=== PATIENT | female | born 1960 | race Hispanic/Latino ===

== ENCOUNTER 2017-08-22 16:20 | Emergency (ER) | payer MEDICAID ==
[2017-08-22 16:20] VITALS: BMI 50.7
[2017-08-22 16:38] VITALS: TEMP 97.9
[2017-08-22] MEDS ORDERED: Sodium Chloride 0.9% 500 ML IV STA (17:08)
--- NOTE | 2017-08-22 17:13 | ED PDOC ---
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 and noted over 1-2 weeks ago with this light-induced dizziness; pt states today, while going home, the bright lights of [employer] caused her another episode of the dizziness and patient decided to come to ED for further eval/exam; pt states she saw her PCP 4days ago and changed patient BP med from losartan to Diovan and it cleared her vision changes ; pt states she noticed blurry eye vision over the last 1-2 weeks; pt is due to see Dr Mcguire over the next few days; pt states no fever/chills/sweats, no cp/ sob/palpitations, no abd pain, no n/v, no numbness/tingling, no urinary/bowel changes, no focal weakness, no slurr speech/facial changes/numbness/tingling, no other complaints; pt is here for further eval. pt is left hand dominate Time/Duration: Other (1month) Symptom Onset: Gradual Symptom Course: Intermittent Context: Walking, Home, Work Past Medical History - Provider Review Nursing Documentation Reviewed: Yes - Travel History Have you recently traveled outside [place] w/in the past 3 mons?: No - Past History Past History: No Previous - Infectious Disease Hx of Infectious Diseases: None - Tetanus Immunization Tetanus Immunization: Unknown - Cardiac Hx Hypertension: Yes - Pulmonary Hx Asthma: Yes - Endocrine/Metabolic Hx Diabetes Mellitus Type 2: Yes Hx Hypothyroidism: Yes - Psychiatric Hx Depression: No Hx Emotional Abuse: No Hx Physical Abuse: No Hx Substance Use: No - Surgical History Hx Hysterectomy: Yes - Anesthesia Hx Anesthesia: Yes Hx Anesthesia Reactions: No Hx Malignant Hyperthermia: No - Suicidal Assessment Feels Threatened In Home Enviroment: No Family/Social History - Physician Review Nursing Documentation Reviewed: Yes Family/Social History: No Known Family HX Smoking Status: Never Smoked Hx Alcohol Use: No Hx Substance Use: No Hx Substance Use Treatment: No Allergies/Home Meds Allergies/Adverse Reactions: Allergies No Known Allergies Allergy (Verified 08/22/17 16:37) Home Medications: Home Meds Medication Instructions Recorded Confirmed Albuterol HFA [Ventolin HFA 90 2 puff IH [id number] PRN 08/22/17 08/22/17 mcg/actuation (8 g)] Ergocalciferol (Vitamin D2) 1.25 mg PO DAILY 08/22/17 08/22/17 [Vitamin D2] Ferrous Sulfate [Feosol] 325 mg PO DAILY 08/22/17 08/22/17 Fluticasone Propionate [Flovent 50 mcg IH PRN PRN 08/22/17 08/22/17 Diskus] Furosemide [Lasix] 40 mg PO DAILY 08/22/17 08/22/17 Glimepiride [amaRYL] 2 mg PO DAILY 08/22/17 08/22/17 Montelukast [Singulair] 10 mg PO DAILY 08/22/17 08/22/17 Potassium Chloride [Klor-Con] 20 meq PO DAILY 08/22/17 08/22/17 SITagliptin [Januvia] 100 mg PO DAILY 08/22/17 08/22/17 Simvastatin [Zocor] 20 mg PO DAILY 08/22/17 08/22/17 Valsartan/Hydrochlorothiazide 1 each PO DAILY 08/22/17 08/22/17 [Diovan Hct 160-25 mg Tablet] metFORMIN [glucOPHAGE] 500 mg PO BID 08/22/17 08/22/17 Review of Systems - Review of Systems Constitutional: Normal Eyes: Vision Changes, Eye Pain, Other (blurry vision) ENT: Normal Respiratory: Normal Cardiovascular: Normal Gastrointestinal: Normal Genitourinary Female: Normal Musculoskeletal: Normal Skin: Normal Neurological: Dizziness. absent: Headache, Focal Weakness, Gait Changes, Speech Changes, Facial Droop, Disequilibrium, Seizure Endocrine: Normal Hemo/Lymphatic: Normal Psychiatric: Normal Physical Exam Vital Signs Reviewed: Yes Vital Signs Temp Pulse Resp BP Pulse Ox 08/22/17 16:38 97.9 F 88 19 150/97 H 97 Temperature: Afebrile Blood Pressure: Hypertensive Pulse: Regular Respiratory Rate: Normal Appearance: Positive for: Well-Appearing, Non-Toxic, Other (mildly uncomfortable , alert/awake, GCS = 15, oriented x 3, cooperative, follows command with ease) Pain Distress: None Mental Status: Positive for: Alert and Oriented X 3 - Systems Exam Head: Present: Atraumatic, Normocephalic Pupils: Present: PERRL, Other (visual field intact b/l, no nystagmus, no photophobia, sclera anicteric) Extroacular Muscles: Present: EOMI Conjunctiva: Present: Normal Ears: Present: Normal Mouth: Present: Moist Mucous Membranes, Normal Teeth, Other (no drooling/stridor , no exudate/lesions, intact dentitions, no dysphonia) Pharnyx: Present: Normal Nose (External): Present: Atraumatic Nose (Internal): Present: Normal Inspection Neck: Present: Normal Range of Motion, Trachea Midline, Other (no meningeal signs, no midline tenderness). No: Meningeal Signs, MIDLINE TENDERNESS Respiratory/Chest: Present: Clear to Auscultation, Good Air Exchange, Other ( CTA b/l; no w/r/r, no accessory muscle use noted, no tachypenia) Cardiovascular: Present: Regular Rate and Rhythm, Normal S1, S2. No: Murmurs Abdomen: Present: Normal Bowel Sounds, Other (well nourished/obese female, no focal tenderness, no masses/rebound/guarding/rigidity; no de la fuente's sign, no mcburney's point tenderness) Back: Present: Normal Inspection. No: CVA Tenderness, Midline Tenderness Upper Extremity: Present: Normal Inspection, Normal ROM, NORMAL PULSES, Neurovascularly Intact Lower Extremity: Present: Normal Inspection, NORMAL PULSES, Normal ROM, Neurovascularly Intact, Capillary Refill < 2 s Neurological: Present: GCS=15, CN II-XII Intact, Speech Normal, Other (CNII-XII WNL, no facial asymmetries, no slurr speech, NIH stroke scale ~ 0) Skin: Present: Warm, Normal Color, Other (cap refill < 1sec, no ulcerations, no petechiae) Psychiatric: Present: Alert, Oriented x 3 Medical Decision Making ED Course and Treatment: 08/22/17 17:17 Impression: dizziness, light induced; unlikely infection, unlikely hypovolm i have consider all the differential diagnosis regarding pt's chief medical complaints/clinical findings, including but are not limited to: dizziness A/P: dizziness - labs - iv - ct - observe - supportive care 08/22/17 20:50 pt is feeling much improved pt is ambulatory without any difficulties pt is currently awaiting CT head 08/22/17 22:17 pt remains comfortable pt is not in any distress NIH stroke scale remains 0 pt is made aware of her medical results pt is encouraged fluid hydration pt is encouraged avoiding constant straining, viewing computer monitor pt will continue with her appointment with eye doctor pt will f/u as directed pt will be discharged home 08/22/17 22:22 Re-evaluation Time: 20:50 Reassessment Condition: Improved - Lab Interpretations Lab Results: 08/22/17 17:58 08/22/17 17:58 Lab Results 08/22/17 17:58: Sodium 138, Potassium 3.7, Chloride 97 L, Carbon Dioxide 28, Anion Gap 17, BUN 28 H, Creatinine 0.9, Est GFR ( Amer) > 60, Est GFR ( Non-Af Amer) > 60, Random Glucose 121 H, Calcium 10.1, Magnesium 2.1, Total Bilirubin 0.4, AST 20, ALT 34, Alkaline Phosphatase 72, Lactate Dehydrogenase 433, Total Creatine Kinase 46, Troponin I < 0.01, Total Protein 7.4, Albumin 4.2 , Globulin 3.2, Albumin/Globulin Ratio 1.3 08/22/17 17:58: Urine Color Yellow, Urine Appearance Clear, Urine pH 6.0, Ur Specific [place] 1.020, Urine Protein Negative, Urine Glucose (UA) Negative, Urine Ketones Negative, Urine Blood Negative, Urine Nitrate Negative, Urine Bilirubin Negative, Urine Urobilinogen 0.2, Ur Leukocyte Esterase Negative 08/22/17 17:58: WBC 9.0, RBC 4.96, Hgb 13.2, Hct 39.8, MCV 80.2, MCH 26.6, MCHC 33.2, RDW 14.8 H, Plt Count 276, MPV 9.9, Gran % 72.6 H, Lymph % (Auto) 19.8 L, [place] % (Auto) 7.1 H, Eos % (Auto) 0.4 L, Baso % (Auto) 0.1, Gran # 6.51 H, Lymph # (Auto) 1.8, [place] # (Auto) 0.6, Eos # (Auto) 0.0, Baso # (Auto) 0.01 08/22/17 17:11: POC Glucose (mg/dL) 131 H I have reviewed the lab results: Yes Interpretation: All labs normal - RAD Interpretation Narrative RAD Interpretations (Text): 08/22/17 23:13 PRELIM reading IMPRESSION: 1. No acute intracranial hemorrhage or acute territorial type infarct. 2. There is minimal periventricular hypodensity, likely representing small vessel ischemic disease in a patient this age. 3. Mild atrophy. Radiology Orders: 08/22/17 17:07 Brain [HEAD W/O CONTRAST] [CT] Stat Patient Registrar: Radiologist - EKG Interpretation EKG Interpretation (Text): 08/22/17 20:54 Sinus tach at 105 bpm, normal axis, + ectopy, non-specific st-t changes, Borderline EKG; unchanged compare with old ekg 07/2015 Interpreted by ED Physician: Yes Type: 12 lead EKG Comparison: Similar to previous EKG - Medication Orders Current Medication Orders: Discontinued Medications Sodium Chloride (Sodium Chloride 0.9%) 500 mls @ 999 mls/hr IV .Q31M STA Stop: 08/22/17 17:38 Last Admin: 08/22/17 17:42 Dose: 999 mls/hr eMAR Start Stop Document 08/22/17 17:42 SF (Rec: 08/22/17 17:42 SF [id number]) Intravenous Solution Start Date 08/22/17 Start Time 17:42 End Date 08/22/17 End time 18:15 Total Infusion Time 33 Disposition/Present on Arrival - Present on Arrival Any Indicators Present on Arrival: No History of DVT/PE: No History of Uncontrolled Diabetes: Yes Urinary Catheter: No History of Decub. Ulcer: No History Surgical Site Infection Following: None - Disposition Have Diagnosis and Disposition been Completed?: Yes Diagnosis: Dizziness, Bilateral eye strain Disposition: HOME/ ROUTINE Disposition Time: 22:19 Patient Plan: Discharge Condition: STABLE Discharge Instructions (ExitCare): Dizziness, Nonvertigo, (DC), Eyestrain Print Language: CITIZEN OF [place] Additional Instructions: Make sure to see your doctor in 1-2 days DRINK PLENTY OF FLUIDS AVOID constant eye straining, take breaks during work is encouraged take your medications as prescribed weight loss is encouraged RETURN TO ED IF worse pain, cant breath, slurr speech, facial numbness/tingling , persistent vomiting, high fever >101-102 for hours, altered behavior, unable to urinate, heavy/persistent bleeding, passing out, chest pain, or other medical emergencies Referrals: Silviano Chan MD [Primary Care Provider] - Follow up with primary Forms: [facility] (Macedonian), WORK NOTE
[2017-08-22 18:16] LABS: BASO # 0.01 K/mm3 (0.0-2.0); BASO % 0.1 % (0.0-3.0); EOS % 0.4 % (1.5-5.0); GRAN # 6.51 (1.4-6.5); GRAN % 72.6 % (50.0-68.0); HEMOGLOBIN 13.2 g/dL (12.0-16.0); LYMPH # 1.8 (1.2-3.4); LYMPH % 19.8 % (22.0-35.0); MEAN CELL VOLUME 80.2 fl (80.0-105.0); MEAN CORPUSCULAR HEMOGLOBIN 26.6 pg (25.0-35.0); MEAN CORPUSCULAR HGB CONC 33.2 g/dl (31.0-37.0); MEAN PLATELET VOLUME 9.9 fl (7.0-11.0); MONO # 0.6 (0.1-0.6); MONO % 7.1 % (1.0-6.0); RBC 4.96 10^6/uL (3.5-6.1); RED CELL DISTRIBUTION WIDTH 14.8 % (11.5-14.5); URINE BILIRUBIN NEGATIVE (NEGATIVE); URINE BLOOD NEGATIVE (NEGATIVE); URINE GLUCOSE (UA) NEGATIVE (NEGATIVE); URINE LEUKOCYTE ESTERASE NEGATIVE Leu/uL (NEGATIVE); URINE NITRATE NEGATIVE (NEGATIVE); URINE PROTEIN NEGATIVE mg/dL (<30 mg/dL); URINE UROBILINOGEN 0.2 E.U./dL (<1 E.U./dL)
[2017-08-22 18:17] LABS: URINE APPEARANCE CLEAR (CLEAR); URINE COLOR YELLOW (YELLOW)
[2017-08-22 18:22] LABS: ALB/GLOB RATIO 1.3 (1.1-1.8); ALBUMIN 4.2 g/dL (3.0-4.8); ALT/SGPT 34 U/L (7-56); AST/SGOT 20 U/L (14-36); BLOOD UREA NITROGEN 28 mg/dL (7-21); CALCIUM 10.1 mg/dL (8.4-10.5); GFR AFRICAN-AMERICAN > 60; GFR NON-AFRICAN AMERICAN > 60; MAGNESIUM 2.1 mg/dL (1.7-2.2)
[2017-08-22 18:34] LABS: TROPONIN I < 0.01 ng/mL
--- NOTE | 2017-08-22 23:08 | CT ---
EXAM: CT Head Without Intravenous Contrast EXAM DATE/TIME: 08/22/2017 5:07 PM CLINICAL HISTORY: The patient age is 56 years old and is female; Signs and symptoms; Dizziness Facility exam id and description: Ct heads head w/o contrast TECHNIQUE: Axial computed tomography images of the head/brain without intravenous contrast. All CT scans at this facility use one or more dose reduction techniques, viz.: automated exposure control; ma/kV adjustment per patient size (including targeted exams where dose is matched to indication; i.e. head); or iterative reconstruction technique. Coronal and sagittal reformatted images were created and reviewed. COMPARISON: No relevant prior studies available. FINDINGS: Brain: There is minimal periventricular hypodensity, likely representing small vessel ischemic disease in a patient this age. The acuity of the white matter disease is indeterminate. The white-sorto differentiation is preserved demonstrating no acute territorial type infarct. There is mild prominence of the ventricles and sulci, compatible with atrophy. No acute intracranial hemorrhage is seen. Midline shift: There is no midline shift. Ventricles: See above. Bones/joints: The calvarium demonstrates no evidence for a depressed fracture. Soft tissues: No acute abnormality. Vasculature: There is atherosclerotic calcification of the cavernous internal carotid arteries. Sinuses: Unremarkable as visualized. No acute sinusitis. Mastoid air cells: No mastoid effusion. IMPRESSION: 1. No acute intracranial hemorrhage or acute territorial type infarct. 2. There is minimal periventricular hypodensity, likely representing small vessel ischemic disease in a patient this age. 3. Mild atrophy.
[2017-08-22 23:27] VITALS: BP 148/82; PULSE 85; RESP 18; O2SAT 100
--- NOTE | 2017-08-23 22:13 | CARD ---
APPROVED REPORT EKG Measurement Heart [id number] CO [id number] [id number] <Conclusion> Normal sinus rhythm Cannot rule out Anterior infarct, age undetermined Abnormal ECG
== END 2017-08-22 22:35 | disposition home or self-care (01) ==
LOC: ED 16:20
DX: R42 Dizziness and giddiness (principal); H53.10 Unspecified subjective visual disturbances; I10 Essential (primary) hypertension; E11.9 Type 2 diabetes mellitus without complications; E03.9 Hypothyroidism, unspecified; Z79.84 Long term (current) use of oral hypoglycemic drugs
CPT/HCPCS: 70450; 80053; 81003; 82550; 82948; 83615; 83735; 84484; 85025; 93005; 96360; 99285; J7040